=== PATIENT | female | born 1980 | race Caucasian/White ===

== ENCOUNTER 2017-01-25 21:02 | Emergency (ER) | payer MEDICAID ==
[~2017-01-25] VITALS: Ht 154.9 cm; Wt 71.5 kg
[2017-01-25 21:07] VITALS: Ht 154.9 cm; Wt 71.5 kg
[2017-01-25] MEDS ORDERED: ACETAMINOPHEN 325 MG TAB PO STA (22:27)
[2017-01-25] MEDS ORDERED: IBUPROFEN 200 MG TAB PO ONE (22:30)
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
[2017-01-25] MEDS ORDERED: IBUP400T22 PO (23:03)
[2017-01-25] MEDS ORDERED: CYCL-319 PO (23:04)
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
== END 2017-01-25 23:15 | disposition home or self-care (01) ==
LOC: FTE 21:02
DX: M79.605 Pain in left leg (principal); R07.9 Chest pain, unspecified
CPT/HCPCS: 71010; 73562; Z7502; Z7610

== ENCOUNTER 2018-06-12 12:20 | Emergency (ER) | payer MEDICAID ==
[~2018-06-12] VITALS: Ht 150 cm; Wt 67.6 kg
[~2018-06-12 12:20] MED LIST: CYCL10TA7 PO; IBUP-1541 PO
[2018-06-12 12:28] VITALS: RESP 16; Ht 150 cm; Wt 67.6 kg
[2018-06-12] MEDS ORDERED: LIDOCAINE/MYLANTA 40 ML BTL PO STA (13:30)
[2018-06-12] MEDS ORDERED: BELLADONNA/PHENOBARBITAL TAB PO STA (13:30)
[2018-06-12] MEDS ORDERED: ACET325T33 PO (15:20)
[2018-06-12] MEDS ORDERED: FAMO-96 PO (15:20)
[2018-06-12] MEDS ORDERED: ONDA4TAB14 PO (15:20)
--- NOTE | 2018-06-12 15:25 | ERD ---
ER Documentation Chief Complaint Chief Complaint mid- AP, NVD since 0200; ate arthur leches cake last night. hx gastritis HPI 37-year-old female presenting with epigastric pain times 1 day. Patient was eating cake last night and developed pain after eating. She had some significant pain and vomiting with diarrhea. No fevers. Has not taken medications for her symptoms. Has a history of gastritis. Denies any chest pain or shortness of breath. Denies other medical problems. NKDA. Surgical history denies. Social history denies ROS All systems reviewed and are negative except as per history of present illness. Medications Home Meds Active Scripts Ondansetron (Ondansetron Odt) 4 Mg Tab.rapdis, 4 MG PO Q6H PRN for NAUSEA AND/OR VOMITING, #10 TAB Prov:HAIDER JONES PA-C 06/12/18 Acetaminophen* (Tylenol*) 325 Mg Tablet, 2 TAB PO Q6 PRN for PAIN AND OR ELEVATED TEMP, #20 TAB Prov:HAIDER JONES PA-C 06/12/18 Famotidine* (Pepcid*) 20 Mg Tablet, 20 MG PO BID for 4 Days, #30 TAB Prov:HAIDER JONES PA-C 06/12/18 Cyclobenzaprine Hcl* (Cyclobenzaprine Hcl*) 10 Mg Tablet, 10 MG PO TID, #30 TAB Prov:RADHA DARDEN PA-C 01/25/17 Ibuprofen* (Ibuprofen*) 400 Mg Tablet, 400 MG PO Q6H PRN for PAIN, #30 TAB Prov:RADHA DARDEN PA-C 01/25/17 Allergies Allergies: Coded Allergies: No Known Allergy (Unverified , 01/25/17) PMhx/Soc Medical and Surgical Hx: pt denies Medical Hx, pt denies Surgical Hx Hx Alcohol Use: No Hx Substance Use: No Hx Tobacco Use: No Smoking Status: Never smoker FmHx Family History: No diabetes, No coronary disease, No other Physical Exam Vitals Vital Signs Date Temp Pulse Resp B/P (MAP) Pulse Ox O2 O2 Flow FiO2 Time Delivery Rate 06/12/18 98.0 75 16 139/88 98 12:28 (105) Physical Exam GENERAL: The patient is well-appearing, well-nourished, in no acute distress HEENT: Atraumatic. Conjunctivae are pink. Pupils equal, round, and reactive to light. There is no scleral icterus. Tympanic membranes clear bilaterally. Oropharynx clear. NECK: C-spine is soft and supple. There is no meningismus. There is no cervical lymphadenopathy. CHEST: Clear to auscultation bilaterally. There are no rales, wheezes or rhonchi. HEART: Regular rate and rhythm. No murmurs, clicks, rubs or gallops. ABDOMEN: Normal active bowel sounds. No distention. Tender to palpation in the epigastric region with rebound tenderness. No right lower quadrant or left lower quadrant pain. No organomegaly. Result Diagram: 06/12/18 1346 06/12/18 1346 Results 24 hrs Laboratory Tests Test 06/12/18 13:46 White Blood Count 15.1 10^3/ul Red Blood Count 4.98 10^6/ul Hemoglobin 14.6 g/dl Hematocrit 42.1 % Mean Corpuscular Volume 84.5 fl Mean Corpuscular Hemoglobin 29.3 pg Mean Corpuscular Hemoglobin Concent 34.7 g/dl Red Cell Distribution Width 12.4 % Platelet Count 233 10^3/UL Mean Platelet Volume 11.4 fl Immature Granulocytes % 0.700 % Neutrophils % 90.2 % Lymphocytes % 4.6 % Monocytes % 3.5 % Eosinophils % 0.7 % Basophils % 0.3 % Nucleated Red Blood Cells % 0.0 /100WBC Immature Granulocytes # 0.110 10^3/ul Neutrophils # 13.6 10^3/ul Lymphocytes # 0.7 10^3/ul Monocytes # 0.5 10^3/ul Eosinophils # 0.1 10^3/ul Basophils # 0.0 10^3/ul Nucleated Red Blood Cells # 0.0 10^3/ul Urine Color YELLOW Urine Clarity TURBID Urine pH 5.0 Urine Specific [place] 1.032 Urine Ketones TRACE mg/dL Urine Nitrite NEGATIVE mg/dL Urine Bilirubin NEGATIVE mg/dL Urine Urobilinogen NEGATIVE mg/dL Urine Leukocyte Esterase NEGATIVE [place]/ul Urine Microscopic RBC 2 /HPF Urine Microscopic WBC 36 /HPF Urine Squamous Epithelial Cells MODERATE /HPF Urine Amorphous Crystals FEW /HPF Urine Bacteria FEW /HPF Urine Mucus MANY /HPF Urine Hemoglobin NEGATIVE mg/dL Urine Glucose NEGATIVE mg/dL Urine Total Protein NEGATIVE mg/dl Sodium Level 139 mmol/L Potassium Level 4.5 mmol/L Chloride Level 104 mmol/L Carbon Dioxide Level 23 mmol/L Anion Gap 12 Blood Urea Nitrogen 17 mg/dl Creatinine 0.56 mg/dl Est Glomerular Filtrat Rate mL/min > 60 mL/min Glucose Level 135 mg/dl Calcium Level 10.1 mg/dl Total Bilirubin 0.9 mg/dl Direct Bilirubin 0.00 mg/dl Indirect Bilirubin 0.9 mg/dl Aspartate Amino Transf (AST/SGOT) 28 IU/L Alanine Aminotransferase (ALT/SGPT) 28 IU/L Alkaline Phosphatase 107 IU/L Total Protein 9.2 g/dl Albumin 5.0 g/dl Globulin 4.20 g/dl Albumin/Globulin Ratio 1.19 Lipase 77 U/L Current Medications Medications Dose Sig/Oscar Start Time Status Last (Trade) Ordered Route PRN Stop Time Admin Dose Reason Admin 40 ml ONCE STAT 06/12/18 DC 06/12/18 Miscellaneous PO 13:30 13:56 Medication 06/12/18 13:31 (Gi Cocktail (2)) Belladonna/ 2 tab ONCE STAT 06/12/18 DC 06/12/18 Phenobarbital PO 13:30 13:56 () 06/12/18 13:31 Procedures/MDM DIAGNOSTIC IMAGING REPORT Patient: ANICETO SULLIVAN : 1980 Age: 37 Sex: F MR #: [id number] DOS: 06/12/18 1330 Ordering MD: YUMIKO JONES PA-C Location: [facility] Room/Bed: PROCEDURE: US Abdomen. CLINICAL INDICATION: abdominal pain TECHNIQUE: Multiple real-time images were acquired of the patient's right upper quadrant abdomen and retroperitoneum utilizing a high resolution transducer. COMPARISON: None FINDINGS: The liver demonstrates increased echogenicity. The liver is normal in size and no focal solid lesions are seen. The liver measures 15.9 cm in length. The portal vein is patent with normal direction of flow. No intrahepatic biliary dilatation is seen. No gallstones are identified within the gallbladder. There is no pericholecystic fluid or gallbladder wall thickening. The common bile duct measures 3 mm in maximal dimension. The pancreas is not well seen due to overlying bowel gas. No free fluid is identified. The right kidney is normal in size, and demonstrate normal echogenicity and cortical thickness. The right kidney measures 11 cm in long dimension. There is no evidence of hydronephrosis. There are no kidney stones. RPTAT: AA IMPRESSION: Fatty infiltration of the liver. No evidence of gallstones. MDM: 37 yr old female complaining of gastric pain. I will suspicion for cardiac or pulmonary emergency. I have low suspicion for acute abdominal emergency. Patient ultrasounds within normal limits and other abdominal exam is within normal limits I do not feel a CT scan is indicated. Patient is discharged with supportive medications and told to follow-up with primary care within 1-2 days for close evaluation. All questions answered at discharge Departure Diagnosis: Primary Impression: Abdominal pain Condition: Stable Patient Instructions: Epigastric Pain (Uncertain Cause) Referrals: [facility] YOU HAVE RECEIVED A MEDICAL SCREENING EXAM AND THE RESULTS INDICATE THAT YOU DO NOT HAVE A CONDITION THAT REQUIRES URGENT TREATMENT IN THE EMERGENCY DEPARTMENT. FURTHER EVALUATION AND TREATMENT OF YOUR CONDITION CAN WAIT UNTIL YOU ARE SEEN IN YOUR DOCTORS OFFICE WITHIN THE NEXT 1-2 DAYS. IT IS YOUR RESPONSIBILITY TO MAKE AN APPOINTMENT FOR FOLOW-UP CARE. IF YOU HAVE A PRIMARY DOCTOR --you should call your primary doctor and schedule an appointment IF YOU DO NOT HAVE A PRIMARY DOCTOR YOU CAN CALL OUR PHYSICIAN REFERRAL HOTLINE AT IF YOU CAN NOT AFFORD TO SEE A PHYSICIAN YOU CAN CHOSE FROM THE FOLLOWING [facility] [address] [employer] [facility]. [facility] [address] [employer] [facility]. [facility] [address] [facility] [address] [facility] [address] [facility]. [facility]. [address] Additional Instructions: FOLLOW UP WITH YOUR PRIMARY CARE PHYSICIAN TOMORROW.Return to this facility if you are not improving as expected. HAIDER JONES PA-C Jun 12, 2018 15:25
[2018-06-12 15:33] VITALS: BP 142/78; PULSE 78
== END 2018-06-12 15:34 | disposition home or self-care (01) ==
LOC: FTE 12:20
DX: R10.13 Epigastric pain (principal); R11.10 Vomiting, unspecified
CPT/HCPCS: 36415; 76705; 80053; 81001; 83690; 85025; Z7502; Z7610